=== PATIENT | female | born 1960 | race Caucasian/White ===

== ENCOUNTER 2023-10-31 07:37 | Outpatient (OUT) | payer OTHER, BC, SELFPAY ==
--- NOTE | 2023-10-31 07:39 | MM_ITS ---
Patient Name: SHAHID PASTRANA MR#: [id number] : 1960 Exam Date: 10/31/2023 Ordering Doctor: Non-Staff Physician RADIOLOGY REPORT PROCEDURE: MM TOMOSYNTHESIS SCREENING BI COMPARISON: MG MAMM RT DIAG FU, 10/27/2022. MG MAMM SCREEN 3D KIT CAD, 10/11/2022. MG MAMM SCREEN 3D KIT CAD, 10/09/2021. MG MAMM SCREEN KIT W CAD, 06/10/2011. INDICATIONS: screening Calculator Name NCI Breast Cancer Risk Assessment Tool 5 Year Breast Cancer Risk 5.50% Lifetime Breast Cancer Risk 24.00% Personal Breast Cancer No Personal Ovarian Cancer No Treatments None Family Cancers Daughter with ovarian cancer at age 28; Sister with thyroid cancer at age 30; Father with colon cancer at age 70; Sister with breast cancer at age 40; Daughter with breast cancer at age 17; Father with breast cancer at age 60; Uncle-maternal with breast cancer at age ~60; Uncle-paternal with breast cancer at age ~59; Aunt-maternal with breast cancer at age ~65; Aunt-maternal with breast cancer at age ~60; Aunt-maternal with breast cancer at age ~62; Aunt-paternal with breast cancer at age ~62; Aunt-paternal with breast cancer at age ~65; Aunt-paternal with breast cancer at age ~65; Cousin-paternal with breast cancer at age 34; Niece with breast cancer at age 32; Daughter with uterine cancer at age 30. LOCATION: [facility] BREAST COMPOSITION: Scattered areas fibroglandular density. FINDINGS: DIAGNOSTIC CATEGORY 2--BENIGN FINDING. NO CHANGE FROM COMPARISON. RIGHT BREAST: Stable large oil cyst/scarring within upper outer quadrant with numerous surrounding punctate calcifications. Stable lymph node within posterior upper-outer quadrant. No significant change has occurred. LEFT BREAST: Stable large oil cyst/scarring within the upper central breast with numerous surrounding punctate calcifications; similar to right side. No significant change has occurred. RECOMMENDATIONS: ROUTINE MAMMOGRAM AND CLINICAL EVALUATION IN 12 MONTHS. PLEASE NOTE: A NORMAL MAMMOGRAM DOES NOT EXCLUDE THE POSSIBILITY OF BREAST CANCER. A CLINICALLY SUSPICIOUS PALPABLE LUMP SHOULD BE BIOPSIED. Dictated by: Neri Rodriguez M.D. on 11/02/2023 at 11:25 Approved by: Neri Rodriguez M.D. on 11/02/2023 at 11:30
== END 2023-10-31 07:38 | disposition home or self-care (01) ==
LOC: MAMMO 07:37
DX: Z12.31 Encounter for screening mammogram for malignant neoplasm of breast (principal); Z80.41 Family history of malignant neoplasm of ovary; Z80.8 Family history of malignant neoplasm of other organs or systems; Z80.1 Family history of malignant neoplasm of trachea, bronchus and lung; Z80.3 Family history of malignant neoplasm of breast; N60.02 Solitary cyst of left breast; N60.01 Solitary cyst of right breast
CPT/HCPCS: 77063; 77067

== ENCOUNTER 2024-06-12 21:34 | Outpatient (REF) | payer OTHER, BC, SELFPAY | END 2024-06-12 21:35 | disposition home or self-care (01) | LOC: LAB 21:34 | PROVIDERS: Visit Provider Physician Assistant | DX: Z01.419 Encounter for gynecological examination (general) (routine) without abnormal findings (principal) | CPT/HCPCS: 87624; 88175 ==

== ENCOUNTER 2024-10-31 08:47 | Outpatient (OUT) | payer OTHER, BC, SELFPAY ==
--- NOTE | 2024-10-31 08:52 | MM_ITS ---
Patient Name: SHAHID PASTRANA MR#: [id number] : 1960 Exam Date: 10/31/2024 Ordering Doctor: TAYLOR LOZANO RADIOLOGY REPORT PROCEDURE: MM TOMOSYNTHESIS SCREENING BI COMPARISON: MM TOMOSYNTHESIS SCREENING BI, 10/31/2023. MG MAMM RT DIAG FU, 10/27/2022. MG MAMM SCREEN 3D KIT CAD, 10/11/2022. MG MAMM SCREEN KIT W CAD, 06/10/2011. INDICATIONS: Screening Calculator Name NCI Breast Cancer Risk Assessment Tool 5 Year Breast Cancer Risk 5.70% Lifetime Breast Cancer Risk 23.40% Personal Breast Cancer No Personal Ovarian Cancer No Treatments None Family Cancers Daughter with ovarian cancer at age 28; Sister with thyroid cancer at age 30; Father with colon cancer at age 70; Sister with breast cancer at age 40; Daughter with breast cancer at age 17; Father with breast cancer at age 60; Uncle-maternal with breast cancer at age ~60; Uncle-paternal with breast cancer at age ~59; Aunt-maternal with breast cancer at age ~65; Aunt-maternal with breast cancer at age ~60; Aunt-maternal with breast cancer at age ~62; Aunt-paternal with breast cancer at age ~62; Aunt-paternal with breast cancer at age ~65; Aunt-paternal with breast cancer at age ~65; Cousin-paternal with breast cancer at age 34; Niece with breast cancer at age 32; Daughter with uterine cancer at age 30. LOCATION: [facility] BREAST COMPOSITION: There are scattered areas of fibroglandular density. FINDINGS: DIAGNOSTIC CATEGORY 1--NEGATIVE. RIGHT BREAST: No significant suspicious finding. LEFT BREAST: No significant suspicious finding. RECOMMENDATIONS: ROUTINE MAMMOGRAM AND CLINICAL EVALUATION IN 12 MONTHS. PLEASE NOTE: THE [employer] NOW RECOMMENDS THAT ALL WOMEN WITH >20% LIFETIME RISK OF BREAST CANCER UNDERGO ANNUAL SCREENING BREAST MRI AND WOMEN WITH 15-20% SPEAK WITH THEIR DOCTORS ABOUT ANNUAL SCREENING BREAST MRI. A NORMAL MAMMOGRAM DOES NOT EXCLUDE THE POSSIBILITY OF BREAST CANCER. A CLINICALLY SUSPICIOUS PALPABLE LUMP SHOULD BE BIOPSIED. Dictated by: Pan Miller DO on 10/31/2024 at 15:59 Approved by: Pan Miller DO on 10/31/2024 at 16:01
== END 2024-10-31 08:48 | disposition home or self-care (01) ==
LOC: MAMMO 08:47
DX: Z12.31 Encounter for screening mammogram for malignant neoplasm of breast (principal); Z80.41 Family history of malignant neoplasm of ovary; Z80.8 Family history of malignant neoplasm of other organs or systems; Z80.0 Family history of malignant neoplasm of digestive organs; Z80.3 Family history of malignant neoplasm of breast
CPT/HCPCS: 77063; 77067